=== PATIENT | female | born 1965 | race Caucasian/White ===

== ENCOUNTER 2017-03-26 13:46 | Emergency (ER) | payer MEDICARE ==
[~2017-03-26 13:46] MED LIST: GLUCTAB PO; METF-324 PO; PLAV75TA PO; ROSU40 PO; WELLTAB39 PO
[2017-03-26 13:48] VITALS: BP 119/75; PULSE 104; RESP 14; TEMP 98.4; O2SAT 99
[2017-03-26] MEDS ORDERED: IBUPROFEN 800 MG TAB PO ONE (14:45)
--- NOTE | 2017-03-26 14:49 | PD ---
HPI Chief Complaint: Musculoskeletal Complaint Time Seen by Provider: 14:35 Travel History International Travel<30 days: No Contact w/Intl Traveler<30days: No Traveled to known affect area: No History of Present Illness HPI 52-year-old female presents to the emergency department complaint of bilateral wrist pain, left knee pain, left lateral neck pain after tripping over a handicapped ramp inclination today. She fell forward to her knees and caught herself with both hands. She denies hitting her head or loss of consciousness. Has been ambulatory since after the fall. Came in private vehicle for evaluation. Denies hitting her head or loss of consciousness. Denies back pain. Denies anticoagulant therapy. Denies chest pain, shortness of breath, abdominal pain, vomiting. Denies paresthesias, loss of sensation, decreased range of motion, decreased strength to all extremities. Has not taken any medications or tried any treatments to alleviate her symptoms. Rates pain 7/ 10. Describes it as aching sensation. No known relieving factors. Neck, wrists, knee are aggravated with movement. Allergies to tramadol and be venom. Denies significant past medical history. No primary care provider in this area. Has no other medical complaints. No other modifying factors or associated signs and symptoms. PFSH Past Medical History ?: Not Social History Tobacco Use: No Allergies-Medications (Allergen,Severity, Reaction): Coded Allergies: bee venom protein (honey bee) (Unverified Allergy, Severe, SWELLLING, 10/31) tramadol (Verified Allergy, Severe, Vertigo, 03/26/17) Reported Meds & Prescriptions Reported Meds & Active Scripts Active Ibuprofen 800 Mg Tab 800 Mg PO Q6HR PRN Robaxin (Methocarbamol) 500 Mg Tab 500 Mg PO QID PRN Reported Metformin (Metformin HCl) 500 Mg Tab 500 Mg PO BIDPC Review of Systems Except as stated in HPI: all other systems reviewed are Neg Physical Exam Narrative GENERAL: Well-nourished, well-developed female patient, in no acute distress SKIN: Warm and dry. Left knee with superficial abrasion noted; without drainage. HEAD: Atraumatic. Normocephalic. EYES: Pupils equal and round No injection or drainage. ENT: Mucosa pink and moist. Airway patent. EARS: Bilateral pinnae and external canals appear within normal limits. Bilateral tympanic membranes without erythema, dullness, hemotympanum or perforation. No otorrhea. No sanchez signs. NECK: Moving freely. Trachea midline. No lymphadenopathy. Active rotation of the neck greater than 45 left and right. No midline point tenderness on palpation of the cervical spine. Reproducible tenderness to bilateral musculature of the neck. No obvious deformities. CHEST: No retractions or use of accessory muscles. CARDIOVASCULAR: Regular rate and rhythm. No murmur appreciated. RESPIRATORY: No accessory muscle use. Clear to auscultation. Breath sounds equal bilaterally. GASTROINTESTINAL: Abdomen soft, non-tender, nondistended. Hepatic and splenic margins not palpable. Bowel sounds are active 4 quadrants. MUSCULOSKELETAL: Bilateral wrists with tenderness on palpation; right wrist with ecchymosis noted to the palmar aspect; with full range of motion; without erythema, edema; 2+ radial pulses and sensory intact. Left knee with tenderness on palpation to the patellar aspect; with full range of motion and flexion to 90; joint stable with negative drawer test. Patient ambulatory on the affected extremity. No obvious deformities. No clubbing. No cyanosis. No edema. BACK: No midline Point tenderness on palpation of the lumbar or thoracic spine. No obvious deformities. Patient sitting up in bed at 90. NEUROLOGICAL: Awake and alert. Oriented 3. No obvious cranial nerve deficits. Motor grossly within normal limits. Normal speech. No midline drift. No ataxia. Moves all extremities. 5/5 strength to all extremities. Sensory intact. PSYCHIATRIC: Appropriate mood and affect; insight and judgment normal. Data Data Last Documented VS Vital Signs Date Time Temp Pulse Resp B/P (MAP) Pulse Ox O2 Delivery O2 Flow Rate FiO2 03/26/17 16:12 20 03/26/17 13:48 98.4 104 119/75 (90) 99 Orders Orders Wrist, Complete ([id number]) (03/26/17 14:45) Ibuprofen (Motrin) (03/26/17 14:45) Wrist, Complete ([id number]) (03/26/17 14:45) Knee, Complete (4vws) (03/26/17 14:48) Ed Discharge Order (03/26/17 16:37) [facility] Medical Decision Making Medical Screen Exam Complete: Yes Emergency Medical Condition: Yes Medical Record Reviewed: Yes Differential Diagnosis Fall, Muscle strain of neck, wrist sprain, knee contusion Narrative Course 52-year-old female with muscle strain of neck, bilateral wrist injury, left knee injury after mechanical fall. Ibuprofen ordered. Bilateral wrist x-ray and left knee x-ray ordered. 1641: I lateral wrist x-ray and left knee x-ray concludes: Knee X-Ray [id number]/26/[id number] Signed Impressions: Service Date/Time: Sunday, March 26, 2017 15:33 - CONCLUSION: 1. No acute findings. Mild osteoarthritis of the left knee. Dallin Maldonado MD Wrist X-Ray [id number]/26/[id number] Signed Impressions: Service Date/Time: Sunday, March 26, 2017 15:40 - CONCLUSION: 1. No acute findings. Mild osteoarthritis of the right wrist. Dallin Maldonado MD Wrist X-Ray [id number] Signed Impressions: Service Date/Time: Sunday, March 26, 2017 15:37 - CONCLUSION: 1. No acute findings. Mild osteoarthritis of the left wrist. Dallin Maldonaod MD I discussed the findings with the patient. Offered the patient wrist splints and crutches for support. Patient declined all. Ibuprofen and Robaxin prescribed for home. Instructed patient to follow up with primary care provider. Patient verbalizes understanding and agreement with treatment plan. Patient is medically cleared and stable for discharge. Discussed reasons to return to the emergency department. Patient agrees with treatment plan. The patients vital signs are stable and the patient is stable for outpatient follow- up and treatment. Patient discharged home, stable and in no acute distress. Diagnosis Primary Impression: Fall Qualified Codes: W19.XXXA - Unspecified fall, initial encounter Additional Impressions: Strain of cervical portion of both trapezius muscles Left wrist injury Qualified Codes: S69.92XA - Unspecified injury of left wrist, hand and finger( s), initial encounter Right wrist injury Qualified Codes: S69.91XA - Unspecified injury of right wrist, hand and finger (s), initial encounter Contusion of left knee Qualified Codes: S80.02XA - Contusion of left knee, initial encounter Referrals: [facility] Primary Care Physician Patient Instructions: Contusion in Adults (ED), Fall Prevention (ED), General Instructions, Muscle Strain (ED), Wrist Sprain (ED) Additional Instructions: Tylenol or ibuprofen as directed and as needed to reduce pain Rest, ice, compress, and elevate extremity to decrease pain and inflammation Wrist Splint for support Knee brace as needed for support Crutches as needed for support Avoid aggravating activity; increase activity as tolerated Follow-up with primary care provider Return to the emergency department immediately with worsening symptoms Med/Other Pt SpecificInfo: Prescription(s) given Scripts Ibuprofen (Ibuprofen) 800 Mg Tab 800 MG PO Q6HR Y for PAIN, #30 TAB 0 Refills Prov: Sveta Monroe 03/26/17 Methocarbamol (Robaxin) 500 Mg Tab 500 MG PO QID Y for MUSCLE SPASM, #30 TAB 0 Refills Prov: Sveta Monroe 03/26/17 Disposition: 01 DISCHARGE HOME Condition: Stable Sveta Monroe Mar 26, 2017 14:49
[2017-03-26] MEDS ORDERED: METF500T PO (15:02)
--- NOTE | 2017-03-26 15:57 | RADRPT ---
EXAM DATE/TIME: 03/26/2017 15:33 [facility] COMPARISON: No previous studies available for comparison. INDICATIONS : Left knee pain, fell today MEDICAL HISTORY : None. SURGICAL HISTORY : None. ENCOUNTER: Initial ACUITY: 1 day PAIN SCORE: 7/10 LOCATION: Left knee FINDINGS: Four view examination of the left knee demonstrates no evidence of fracture or dislocation. Bony min eralization is normal. The articular surfaces are intact. The suprapatellar soft tissues have a nor mal configuration. CONCLUSION: 1. No acute findings. Mild osteoarthritis of the left knee. Dallin Maldonado MD on March 26, 2017 at 15:54 Board Certified Radiologist. This report was verified electronically.
--- NOTE | 2017-03-26 15:57 | RADRPT ---
EXAM DATE/TIME: 03/26/2017 15:37 [facility] COMPARISON: No previous studies available for comparison. INDICATIONS : Left wrist pain, fell today. MEDICAL HISTORY : None. SURGICAL HISTORY : None. ENCOUNTER: Initial ACUITY: 1 day PAIN SCORE: 7/10 LOCATION: Left wrist FINDINGS: Three view examination of the left wrist demonstrates no soft tissue swelling, dislocation, or fractu re. The carpal bones are in normal alignment. The joint spaces are maintained. Bony mineralization is normal. CONCLUSION: 1. No acute findings. Mild osteoarthritis of the left wrist. Dallin Maldonado MD on March 26, 2017 at 15:54 Board Certified Radiologist. This report was verified electronically.
--- NOTE | 2017-03-26 15:58 | RADRPT ---
EXAM DATE/TIME: 03/26/2017 15:40 [facility] COMPARISON: No previous studies available for comparison. INDICATIONS : Right wrist pain, fell today. MEDICAL HISTORY : None. SURGICAL HISTORY : None. ENCOUNTER: Initial ACUITY: 1 day PAIN SCORE: 7/10 LOCATION: Right wrist FINDINGS: Three view examination of the right wrist demonstrates no soft tissue swelling, dislocation, or fract ure. The carpal bones are in normal alignment. The joint spaces are maintained. Bony mineralizatio n is normal. CONCLUSION: 1. No acute findings. Mild osteoarthritis of the right wrist. Dallin Maldonado MD on March 26, 2017 at 15:55 Board Certified Radiologist. This report was verified electronically.
[2017-03-26] MEDS ORDERED: IBUP1TAB7 PO (16:01)
[2017-03-26] MEDS ORDERED: ROBA500T PO (16:01)
[2017-03-26 16:12] VITALS: RESP 20
== END 2017-03-26 16:56 | disposition home or self-care (01) ==
LOC: NEPK 13:46
DX: S16.1XXA Strain of muscle, fascia and tendon at neck level, initial encounter (principal); S69.92XA Unspecified injury of left wrist, hand and finger(s), initial encounter; S69.91XA Unspecified injury of right wrist, hand and finger(s), initial encounter; S80.02XA Contusion of left knee, initial encounter; W01.0XXA Fall on same level from slipping, tripping and stumbling without subsequent striking against object, initial encounter
CPT/HCPCS: 73110; 73564; 99284

== ENCOUNTER 2017-05-20 12:54 | Inpatient (IN) | payer MEDICARE ==
[2017-05-20] VITALS (7 sets, daily range): BP systolic 108–183; BP diastolic 74–100; PULSE 74–89; RESP 16–18; TEMP 98–98.6; O2SAT 98–100
[~2017-05-20] VITALS: Ht 165.1 cm; Wt 85.0 kg
[~2017-05-20 12:54] MED LIST changes: -GLUCTAB PO; +IBUP1TAB7 PO; -METF-324 PO; +METF500T PO; -PLAV75TA PO; +ROBA500T PO; -ROSU40 PO; -WELLTAB39 PO
[2017-05-20] MEDS ORDERED: SODIUM CHLORIDE 0.9% FLUSH 10 ML FLUSH IVF PRN (13:15)
--- NOTE | 2017-05-20 13:50 | PD ---
HPI Chief Complaint: Neuro Symptoms/ Deficits Time Seen by Provider: 13:14 Travel History International Travel<30 days: No Contact w/Intl Traveler<30days: No Traveled to known affect area: No History of Present Illness HPI The patient is a 52-year-old female who arrives to the ER with a complaint of numbness tingling weakness involving both upper and both lower extremities and weakness in the left face. The symptoms have been coming and going somewhat intermittently over the past 6 hours or so. At time of ER evaluation she has no symptoms however reports she had a stroke 6 years ago and is worried the same is happening now. The stroke affected the right side. She denies drugs alcohol. She reports compliance with Plavix. PFSH Past Medical History Anxiety: Yes High Cholesterol: Yes Cerebrovascular Accident: Yes Diabetes: Yes Patient Takes Glucophage: Yes Diminished Hearing: No Immunizations Current: Yes ?: Not Menopausal: Yes Dilation and Curettage (D&C): Yes Tubal Ligation: Yes Past Surgical History Section: Yes Other Surgery: Yes (spinal fusions) Social History Alcohol Use: No Tobacco Use: No Substance Use: No Allergies-Medications (Allergen,Severity, Reaction): Coded Allergies: bee venom protein (honey bee) (Verified Allergy, Severe, SWELLLING, 05/20/17 ) tramadol (Verified Allergy, Severe, Vertigo, 05/20/17) Reported Meds & Prescriptions Reported Meds & Active Scripts Active Reported [place] (Hydrocodone-Acetaminophen) 5 Mg-325 Mg Tab 1 Tab PO Q4H PRN Crestor (Rosuvastatin Calcium) 40 Mg Tab 75 Mg PO DAILY Glyburide 5 Mg Tab 10 Mg PO DAILY Take with meals at the same time each day Plavix (Clopidogrel Bisulfate) 75 Mg Tab 75 Mg PO DAILY Metformin (Metformin HCl) 500 Mg Tab 500 Mg PO BIDPC Review of Systems Except as stated in HPI: all other systems reviewed are Neg General / Constitutional: No: Fever Neurologic: Positive: Focal Abnormalities, Paresthesia Physical Exam Narrative GENERAL: 52-year-old female pleasant well-nourished well-developed Vital Signs Date Time Temp Pulse Resp B/P (MAP) Pulse Ox O2 Delivery O2 Flow Rate FiO2 05/20/17 13:45 100 Room Air 05/20/17 13:40 Room Air 05/20/17 12:57 98.6 88 17 154/100 (118) 99 SKIN: Warm and dry. HEAD: Atraumatic. Normocephalic. EYES: Pupils equal and round. No scleral icterus. No injection or drainage. ENT: No nasal bleeding or discharge. Mucous membranes pink and moist. NECK: Trachea midline. No JVD. CARDIOVASCULAR: Regular rate and rhythm. RESPIRATORY: No accessory muscle use. Clear to auscultation. Breath sounds equal bilaterally. GASTROINTESTINAL: Abdomen soft, non-tender, nondistended. Hepatic and splenic margins not palpable. MUSCULOSKELETAL: Extremities without clubbing, cyanosis, or edema. No obvious deformities. NEUROLOGICAL: Speech memory mentation normal. The cranial nerves III through XII are normal. There is trace weakness in the right upper right lower extremity compared to the left. The patient has a known history of weakness on that side. Cerebellar function is normal. PSYCHIATRIC: Appropriate mood and affect; insight and judgment normal. Data Data Last Documented VS Vital Signs Date Time Temp Pulse Resp B/P (MAP) Pulse Ox O2 Delivery O2 Flow Rate FiO2 05/20/17 15:00 78 16 179/85 (116) 98 Nasal Cannula 2.00 05/20/17 12:57 98.6 Vital signs reviewed Orders Orders Electrocardiogram (05/20/17 13:14) Prothrombin Time / Inr (Pt) (05/20/17 13:14) Act Partial Throm Time (Ptt) (05/20/17 13:14) Complete Blood Count With Diff (05/20/17 13:14) Basic Metabolic Panel (Bmp) (05/20/17 13:14) Drug Screen, Random Urine (05/20/17 13:14) Urinalysis - C+S If Indicated (05/20/17 13:14) Ct Brain W/O Iv Contrast(Rout) (05/20/17 13:14) Ecg Monitoring (05/20/17 13:14) Iv Access Insert/Monitor (05/20/17 13:14) Oximetry (05/20/17 13:14) Sodium Chloride 0.9% Flush (Ns Flush) (05/20/17 13:15) Urine Culture (05/20/17 13:20) Admit Order (Ed Use Only) (05/20/17 ) Sign Out Clerk / Telemetry DALIA.Q8H (05/20/17 15:56) Vital Signs (Adult) Q4H (05/20/17 15:56) Diet Heart Healthy (05/20/17 Dinner) Activity Bed Rest (05/20/17 15:56) Labs Laboratory Tests Test 05/20/17 13:20 05/20/17 13:50 Urine Color LIGHT-YELLOW Urine Turbidity CLEAR Urine pH 5.0 Urine Specific [place] 1.032 Urine Protein NEG mg/dL Urine Glucose (UA) 1000 mg/dL Urine Ketones NEG mg/dL Urine Occult Blood NEG Urine Nitrite POS Urine Bilirubin NEG Urine Urobilinogen LESS THAN 2.0 MG/DL Urine Leukocyte Esterase NEG Urine RBC 1 /hpf Urine WBC 2 /hpf Urine Squamous Epithelial Cells 4 /hpf Urine Bacteria MOD /hpf Urine Mucus FEW /lpf Microscopic Urinalysis Comment CATH-CULTURE IND Urine Opiates Screen NEG Urine Barbiturates Screen NEG Urine Amphetamines Screen NEG Urine Benzodiazepines Screen NEG Urine Cocaine Screen NEG Urine Cannabinoids Screen NEG White Blood Count 11.1 TH/MM3 Red Blood Count 4.65 MIL/MM3 Hemoglobin 12.7 GM/DL Hematocrit 38.2 % Mean Corpuscular Volume 82.2 FL Mean Corpuscular Hemoglobin 27.4 PG Mean Corpuscular Hemoglobin Concent 33.4 % Red Cell Distribution Width 12.9 % Platelet Count 224 TH/MM3 Mean Platelet Volume 9.2 FL Neutrophils (%) (Auto) 58.7 % Lymphocytes (%) (Auto) 33.8 % Monocytes (%) (Auto) 6.2 % Eosinophils (%) (Auto) 0.9 % Basophils (%) (Auto) 0.4 % Neutrophils # (Auto) 6.5 TH/MM3 Lymphocytes # (Auto) 3.7 TH/MM3 Monocytes # (Auto) 0.7 TH/MM3 Eosinophils # (Auto) 0.1 TH/MM3 Basophils # (Auto) 0.0 TH/MM3 CBC Comment DIFF FINAL Differential Comment Prothrombin Time 10.0 SEC Prothromb Time International Ratio 1.0 RATIO Activated Partial Thromboplast Time 23.8 SEC Blood Urea Nitrogen 26 MG/DL Creatinine 1.01 MG/DL Random Glucose 379 MG/DL Calcium Level 8.8 MG/DL Sodium Level 135 MEQ/L Potassium Level 3.9 MEQ/L Chloride Level 100 MEQ/L Carbon Dioxide Level 29.1 MEQ/L Anion Gap 6 MEQ/L Estimat Glomerular Filtration Rate 57 ML/MIN MDM Medical Decision Making Medical Screen Exam Complete: Yes Emergency Medical Condition: Yes Medical Record Reviewed: Yes Differential Diagnosis TIA, CVA, electron imbalance, anxiety, paresthesia Narrative Course CBC & BMP Diagram 05/20/17 13:50 Calcium Level 8.8 Urinalysis shows a UTI Urine tox is negative Anion gap is [address] shows no acute abnormality The EKG shows sinus rhythm at a rate of 82 Presentation is concerning for TIA. The patient will be admitted for diagnostic evaluation. d/w Dr [place] Diagnosis Primary Impression: TIA (transient ischemic attack) Qualified Codes: G45.9 - Transient cerebral ischemic attack, unspecified Additional Impression: UTI (urinary tract infection) Qualified Codes: N39.0 - Urinary tract infection, site not specified Admitting Information Admitting Physician Requests: Observation Duncan Brown MD May 20, 2017 13:50
[2017-05-20 14:10] LABS: AUTOMATED NEUTROPHIL # 6.5 TH/MM3 (1.8-7.7); BASOPHIL % 0.4 % (0.0-2.0); EOSINOPHIL # 0.1 TH/MM3 (0-0.4); EOSINOPHIL % 0.9 % (0.0-4.0); HEMATOCRIT 38.2 % (35.0-46.0); HEMOGLOBIN 12.7 GM/DL (11.6-15.3); LYMPH % 33.8 % (9.0-44.0); LYMPHOCYTE # 3.7 TH/MM3 (1.0-4.8); MEAN CELL VOLUME 82.2 FL (80.0-100.0); MEAN CORPUSCULAR HEMOGLOBIN 27.4 PG (27.0-34.0); MEAN CORPUSCULAR HGB CONC 33.4 % (32.0-36.0); MEAN PLATELET VOLUME 9.2 FL (7.0-11.0); MONO % 6.2 % (0.0-8.0); MONOCYTE # 0.7 TH/MM3 (0-0.9); NEUT % 58.7 % (16.0-70.0); PLATELET COUNT 224 TH/MM3 (150-450); RED BLOOD COUNT 4.65 MIL/MM3 (4.00-5.30); RED CELL DISTRIBUTION WIDTH 12.9 % (11.6-17.2); WHITE BLOOD COUNT 11.1 TH/MM3 (4.0-11.0)
[2017-05-20 14:12] LABS: BACTERIA, URINE MOD /hpf; BILIRUBIN, URINE NEG (NEG); BLOOD, URINE NEG (NEG); GLUCOSE,URINE 1000 mg/dL (NEG); KETONE, URINE NEG (NEG); MUCUS URINE FEW /lpf (OCC); NITRITE,URINE POS (NEG); SQUAMOUS EPITHELIAL CELL URINE 4 /hpf (0-5); URINE COLOR LIGHT-YELLOW (YELLW/STRAW); URINE LEUKOCYTE ESTERASE NEG (NEG)
[2017-05-20 14:29] LABS: CALCIUM 8.8 MG/DL (8.5-10.1); CREATININE 1.01 MG/DL (0.50-1.00)
[2017-05-20 14:30] LABS: BICARBONATE 29.1 MEQ/L (21.0-32.0)
[2017-05-20] MEDS ORDERED: PLAV75TA29 PO (14:37)
[2017-05-20] MEDS ORDERED: GLYB5TAB3 PO (14:37)
[2017-05-20] MEDS ORDERED: ROSU40 PO (14:37)
[2017-05-20] MEDS ORDERED: NORC5TAB PO (14:37)
--- NOTE | 2017-05-20 16:47 | RADRPT ---
EXAM DATE/TIME: 05/20/2017 16:36 [facility] COMPARISON: No previous studies available for comparison. INDICATIONS : Left facial numbness, loss of balance, bilateral arm numbness, TIA. RADIATION DOSE: 56.35 CTDIvol (mGy) MEDICAL HISTORY : CVA SURGICAL HISTORY : None. ENCOUNTER: Initial ACUITY: 1 day PAIN SCALE: 0/10 LOCATION: cranial TECHNIQUE: Multiple contiguous axial images were obtained of the head. Using automated exposure control and adj ustment of the mA and/or kV according to patient size, radiation dose was kept as low as reasonably a chievable to obtain optimal diagnostic quality images. DICOM format image data is available electro nically for review and comparison. FINDINGS: CEREBRUM: The ventricles are normal for age. No evidence of midline shift, mass lesion, hemorrhage or acute in farction. No extra-axial fluid collections are seen. POSTERIOR FOSSA: The cerebellum and brainstem are intact. The 4th ventricle is midline. The cerebellopontine angle i s unremarkable. EXTRACRANIAL: The visualized portion of the orbits is intact. SKULL: The calvaria is intact. No evidence of skull fracture. CONCLUSION: Normal examination. Jorge Luis Guadarrama MD on May 20, 2017 at 16:44 Board Certified Radiologist. This report was verified electronically.
[2017-05-20] MEDS ORDERED: SODIUM CHLORIDE 0.9% FLUSH 10 ML FLUSH IV FLUSH PRN (18:15)
[2017-05-20] MEDS ORDERED: GLUCAGON 1 MG/ML VIAL OTHER PRN (18:15)
[2017-05-20] MEDS ORDERED: DEXTROSE 50% IN WATER 50 ML VIAL(D50) IV PUSH PRN (18:15)
--- NOTE | 2017-05-20 19:08 | RADRPT ---
EXAM DATE/TIME: 05/20/2017 18:43 [facility] COMPARISON: No previous studies available for comparison. INDICATIONS : Left facial numbness, loss of balance, bilateral arm numbness, TIA. MEDICAL HISTORY : CVA SURGICAL HISTORY : none ENCOUNTER: Initial ACUITY: One day PAIN SCORE: Zero LOCATION: Cranial TECHNIQUE: Multiplanar, multisequence MRI of the brain was performed without contrast. FINDINGS: CEREBRUM: The ventricles are normal for age. No evidence of midline shift, mass lesion, hemorrhage or acute in farction. No extraaxial fluid collections are seen. The pituitary gland and suprasellar cistern are normal in configuration. WHITE MATTER: Mild signal abnormalities are seen in the white matter. POSTERIOR FOSSA: The cerebellum and brainstem are intact. The 4th ventricle is midline. The cerebellopontine angle is unremarkable. The cerebellar tonsils are normal in position. DIFFUSION IMAGING: No focal areas of restricted diffusion are seen. No evidence of acute infarction. EXTRACRANIAL: The visualized portions of the orbits and paranasal sinuses are unremarkable. CONCLUSION: 1. No acute findings. No recent infarct no mass effect or shift. No hydrocephalus. Minimal white sergio er ischemic changes. Dallin Maldonado MD on May 20, 2017 at 19:02 Board Certified Radiologist. This report was verified electronically.
--- NOTE | 2017-05-20 19:25 | RADRPT ---
EXAM DATE/TIME: 05/20/2017 18:43 [facility] COMPARISON: No previous studies available for comparison. INDICATIONS : Left sided weakness. MEDICAL HISTORY : Diabetes mellitus type 2. Hypertension. Hypercholesterolemia. CVA. SURGICAL HISTORY : Tubal ligation. Fusion, lumbar. section. ENCOUNTER: Initial ACUITY: 1 day PAIN SCORE: 0/10 LOCATION: cranial Please note a normal MRA of the brain does not entirely exclude the possibility of a small aneurysm, nor the possibility of distal intracranial vessel disease. TECHNIQUE: 3D time of flight MRA was performed. Source images, multiplanar STS MIP, and 3D volume MIP reconstru ctions were reviewed. FINDINGS: There is excellent visualization of the major intracranial arteries out to the second-order branch ve ssels. There is no evidence for aneurysm, vessel truncation or stenosis, and no evidence for vascula r malformation. CONCLUSION: 1. Examination within normal limits for age. Dallin Maldonado MD on May 20, 2017 at 19:20 Board Certified Radiologist. This report was verified electronically.
[2017-05-20] MEDS: cefTRIAXone INJ 1,000 MG in SODIUM CHLORIDE 0.9% INJ 100 ML IV SCH (19:49)
[2017-05-20] MEDS: SODIUM CHLORIDE 0.9% FLUSH 10 ML FLUSH IV FLUSH SCH (19:49)
[2017-05-20] MEDS: ATORVASTATIN 10 MG TAB PO SCH (19:49)
--- NOTE | 2017-05-20 19:52 | HHI.HP ---
HPI Service [facility] Primary Care Physician No Primary Care Physician Admission Diagnosis TIA Diagnoses: Chief Complaint: Left upper extremity numbness, facial numbness Travel History International Travel<30 Days: No Contact w/Intl Traveler <30 Da: No Traveled to Known Affected Are: No History of Present Illness 52 -year-old female with a history of diabetes, hyperlipidemia, CVA and anxiety presented to the ED with complaints of numbness and tingling to bilateral upper extremities. Patient states today about 8 AM this morning she began to have upper extremity numbness and tingling mostly in her left upper arm and left leg and the left side of her face. She states throughout the day this feeling would come and go when she also had a hard time finding words when speaking. 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 She denies any associated chest pain, shortness of breath, fever or chills. She has just recently moved to [place] in January and has not found a primary care physician and as of Sunday she has been out of her diabetic medications. She states she is compliant with all her other medications for cholesterol and her Plavix. Upon examination she was experiencing intermittent left-sided cheek numbness. No facial droop noted. Review of Systems Except as stated in HPI: all other systems reviewed are Neg Past Family Social History Past Medical History Diabetes Hyperlipidemia Anxiety Past Surgical History Spinal fusion Tubal ligation Reported Medications Reported Meds & Active Scripts Active Reported [place] (Hydrocodone-Acetaminophen) 5 Mg-325 Mg Tab 1 Tab PO Q4H PRN Crestor (Rosuvastatin Calcium) 40 Mg Tab 75 Mg PO DAILY Glyburide 5 Mg Tab 10 Mg PO DAILY Take with meals at the same time each day Plavix (Clopidogrel Bisulfate) 75 Mg Tab 75 Mg PO DAILY Metformin (Metformin HCl) 500 Mg Tab 500 Mg PO BIDPC Allergies: Coded Allergies: bee venom protein (honey bee) (Verified Allergy, Severe, SWELLLING, 05/20/17 ) tramadol (Verified Allergy, Severe, Vertigo, 05/20/17) Active Ordered Medications Current Medications Medications (Trade) Dose Ordered Sig/Trish Route Start Time Stop Time Status Last Admin (NS Flush) 2 ml UNSCH PRN IVF 05/20/17 13:15 (NS Flush) 2 ml BID IV FLUSH 05/20/17 21:00 (NS Flush) 2 ml UNSCH PRN IV FLUSH 05/20/17 18:15 (Aspirin Chew) 81 mg DAILY PO 05/21/17 09:00 (Lipitor) 10 mg HS PO 05/20/17 21:00 (NovoLOG SUPPLEMENTAL SCALE) 1 ACHS SQ 05/20/17 21:00 (D50w (Vial) Inj) 50 ml UNSCH PRN IV PUSH 05/20/17 18:15 (Glucagon Inj) 1 mg UNSCH PRN OTHER 05/20/17 18:15 Ceftriaxone Sodium 1000 mg/ Sodium Chloride 100 ml @ 200 mls/hr Q24H IV 05/20/17 20:00 Family History Mom: CVA Social History Tobacco use: Alcohol use: Illicit drug use: Physical Exam Vital Signs Vital Signs Date Time Temp Pulse Resp B/P (MAP) Pulse Ox O2 Delivery O2 Flow Rate FiO2 05/20/17 16:50 98.1 74 18 183/94 (123) 100 05/20/17 16:41 05/20/17 15:00 78 16 179/85 (116) 98 Nasal Cannula 2.00 05/20/17 14:00 84 16 154/91 (112) 100 Room Air 05/20/17 13:45 100 Room Air 05/20/17 13:40 Room Air 05/20/17 12:57 98.6 88 17 154/100 (118) 99 Physical Exam GENERAL: This is a well-nourished, well-developed patient, in no apparent distress. SKIN: No rashes, ecchymoses or lesions. Cool and dry. HEAD: Atraumatic. Normocephalic. EYES: Pupils equal round and reactive. No peripheral vision loss ENT: Nose without bleeding, purulent drainage or septal hematoma. Airway patent. NECK: Trachea midline. No JVD or lymphadenopathy. Supple, nontender, no meningeal signs. CARDIOVASCULAR: Regular rate and rhythm without murmurs, gallops, or rubs. RESPIRATORY: Clear to auscultation. Breath sounds equal bilaterally. No wheezes , rales, or rhonchi. GASTROINTESTINAL: Abdomen soft, non-tender, nondistended. MUSCULOSKELETAL: Right side weaker than left, chronic, tenderness. NEUROLOGICAL: Awake and alert. Cranial nerves II through XII intact. Motor and sensory grossly within normal limits. 4 out of 5 muscle strength in right upper extremity, chronic Normal speech. Laboratory Laboratory Tests Test 05/20/17 13:20 05/20/17 13:50 Urine Color LIGHT-YELLOW Urine Turbidity CLEAR Urine pH 5.0 Urine Specific [place] 1.032 Urine Protein NEG Urine Glucose (UA) 1000 Urine Ketones NEG Urine Occult Blood NEG Urine Nitrite POS Urine Bilirubin NEG Urine Urobilinogen LESS THAN 2.0 Urine Leukocyte Esterase NEG Urine RBC 1 Urine WBC 2 Urine Squamous Epithelial Cells 4 Urine Bacteria MOD Urine Mucus FEW Microscopic Urinalysis Comment CATH-CULTURE IND Urine Opiates Screen NEG Urine Barbiturates Screen NEG Urine Amphetamines Screen NEG Urine Benzodiazepines Screen NEG Urine Cocaine Screen NEG Urine Cannabinoids Screen NEG White Blood Count 11.1 Red Blood Count 4.65 Hemoglobin 12.7 Hematocrit 38.2 Mean Corpuscular Volume 82.2 Mean Corpuscular Hemoglobin 27.4 Mean Corpuscular Hemoglobin Concent 33.4 Red Cell Distribution Width 12.9 Platelet Count 224 Mean Platelet Volume 9.2 Neutrophils (%) (Auto) 58.7 Lymphocytes (%) (Auto) 33.8 Monocytes (%) (Auto) 6.2 Eosinophils (%) (Auto) 0.9 Basophils (%) (Auto) 0.4 Neutrophils # (Auto) 6.5 Lymphocytes # (Auto) 3.7 Monocytes # (Auto) 0.7 Eosinophils # (Auto) 0.1 Basophils # (Auto) 0.0 CBC Comment DIFF FINAL Differential Comment Prothrombin Time 10.0 Prothromb Time International Ratio 1.0 Activated Partial Thromboplast Time 23.8 Blood Urea Nitrogen 26 Creatinine 1.01 Random Glucose 379 Calcium Level 8.8 Sodium Level 135 Potassium Level 3.9 Chloride Level 100 Carbon Dioxide Level 29.1 Anion Gap 6 Estimat Glomerular Filtration Rate 57 Date/Time Source Procedure Growth Status 05/20/17 13:20 Urine Catheterized Urine Urine Culture Pending Received Result Diagram: 05/20/17 1350 05/20/17 1350 Imaging Last Impressions Head CT 05/20/17 1314 Signed Impressions: Service Date/Time: Saturday, May 20, 2017 16:36 - CONCLUSION: Normal examination. Jorge Luis Guadarrama MD Head Magnetic Resonance Angiography 05/20/17 Signed Impressions: Service Date/Time: Saturday, May 20, 2017 18:43 - CONCLUSION: 1. Examination within normal limits for age. Dallin Maldonado MD Brain MRI 05/20/17 Signed Impressions: Service Date/Time: Saturday, May 20, 2017 18:43 - CONCLUSION: 1. No acute findings. No recent infarct no mass effect or shift. No hydrocephalus. Minimal white matter ischemic changes. Dallin Maldonado MD Caprini VTE Risk Assessment Caprini VTE Risk Assessment: Mod/High Risk (score >= 2) Caprini Risk Assessment Model Point Value = 1 Point Value = 2 Point Value = 3 Point Value = 5 Age 41-60 Minor surgery BMI > 25 kg/m2 Swollen legs Varicose veins or History of unexplained or recurrent spontaneous Oral contraceptives or hormone replacement Sepsis (< 1 month) Serious lung disease, including pneumonia (< 1 month) Abnormal pulmonary function Acute myocardial infarction Congestive heart failure (< 1 month) History of inflammatory bowel disease Medical patient at bed rest Age 61-74 Arthroscopic surgery Major open surgery (> 45 min) Laparoscopic surgery (> 45 min) Malignancy Confined to bed (> 72 hours) Immobilizing plaster cast Central venous access Age >= 75 History of VTE Family history of VTE Factor V Leiden Prothrombin [id number] Lupus anticoagulant Anticardiolipin antibodies Elevated serum homocysteine Heparin-induced thrombocytopenia Other congenital or acquired thrombophilia Stroke (< 1 month) Elective arthroplasty Hip, pelvis, or leg fracture Acute spinal cord injury (< 1 month) Prophylaxis Regimen Total Risk Factor Score Risk Level Prophylaxis Regimen 0-1 Low Early ambulation 2 Moderate Order ONE of the following: *Sequential Compression Device (SCD) *Heparin 5000 units SQ BID 3-4 Higher Order ONE of the following medications: *Heparin 5000 units SQ TID *Enoxaparin/Lovenox 40 mg SQ daily (WT < 150 kg, CrCl > 30 mL/min) *Enoxaparin/Lovenox 30 mg SQ daily (WT < 150 kg, CrCl > 10-29 mL/min) *Enoxaparin/Lovenox 30 mg SQ BID (WT < 150 kg, CrCl > 30 mL/min) AND/OR *Sequential Compression Device (SCD) 5 or more Highest Order ONE of the following medications: *Heparin 5000 units SQ TID (Preferred with Epidurals) *Enoxaparin/Lovenox 40 mg SQ daily (WT < 150 kg, CrCl > 30 mL/min) *Enoxaparin/Lovenox 30 mg SQ daily (WT < 150 kg, CrCl > 10-29 mL/min) *Enoxaparin/Lovenox 30 mg SQ BID (WT < 150 kg, CrCl > 30 mL/min) AND *Sequential Compression Device (SCD) Assessment and Plan Problem List: (1) TIA (transient ischemic attack) ICD Code: G45.9 - Transient cerebral ischemic attack, unspecified Status: Acute (2) UTI (urinary tract infection) ICD Code: N39.0 - Urinary tract infection, site not specified Status: Acute Assessment and Plan 52 -year-old female with a history of diabetes, hyperlipidemia, anxiety presented to the ED with complaints of numbness and tingling to bilateral upper extremities. TIA, acute CT brain reviewed and unremarkable MRI/MRA reviewed and shows no acute findings -Continue neuro checks -Consult neurology for recommendations -Lipid profile/hemoglobin A1c ordered -2-D echo ordered -PT/OT/ST -Continue Plavix, aspirin daily -2-D echo pending -Carotid ultrasound ordered Abnormal UA, questionable UTI -Continue Rocephin daily -Urine culture pending Diabetes, chronic -Accu-Cheks with sliding scale insulin -Hold home medications while in hospital Hyperlipidemia, chronic -Resumed home medications Crestor -Follow-up on lipid panel DVT prophylaxis: SCDs Discussed Condition With Patient, RN Problem Qualifiers (1) TIA (transient ischemic attack): Qualified Codes: G45.9 - Transient cerebral ischemic attack, unspecified (2) UTI (urinary tract infection): Qualified Codes: N39.0 - Urinary tract infection, site not specified Angeles Loera May 20, 2017 19:52
[2017-05-20] MEDS: INSULIN ASPART SUPPLEMENTAL SCALE SQ SCH (20:53)
[2017-05-21] VITALS (8 sets, daily range): BP systolic 101–162; BP diastolic 58–84; PULSE 77–94; RESP 17–18; TEMP 97.8–98.4; O2SAT 97–100
--- NOTE | 2017-05-21 08:06 | HHI.PR ---
Subjective Remarks in no acute distress. still with some tingling of the upper extremities. no focal weakness. Objective Vitals Vital Signs Date Time Temp Pulse Resp B/P (MAP) Pulse Ox O2 Delivery O2 Flow Rate FiO2 05/21/17 03:37 94 18 104/59 (74) 100 05/21/17 03:30 97.9 77 18 114/61 (78) 97 05/21/17 00:24 98.0 78 18 118/58 (78) 98 05/20/17 22:55 89 05/20/17 20:16 98.0 79 18 108/74 (85) 100 05/20/17 16:50 98.1 74 18 183/94 (123) 100 05/20/17 16:41 05/20/17 15:00 78 16 179/85 (116) 98 Nasal Cannula 2.00 05/20/17 14:00 84 16 154/91 (112) 100 Room Air 05/20/17 13:45 100 Room Air 05/20/17 13:40 Room Air 05/20/17 12:57 98.6 88 17 154/100 (118) 99 I/O 05/20/17 05/20/17 05/20/17 05/21/17 05/21/17 05/21/17 07:00 15:00 23:00 07:00 15:00 23:00 Intake Total 100 ml Balance 100 ml Intake IV Total 100 ml # Voids 2 Result Diagram: 05/20/17 1350 05/20/17 1350 Imaging Last Impressions Head CT 05/20/17 1314 Signed Impressions: Service Date/Time: Saturday, May 20, 2017 16:36 - CONCLUSION: Normal examination. Jorge Luis Guadarrama MD Head Magnetic Resonance Angiography 05/20/17 0000 Signed Impressions: Service Date/Time: Saturday, May 20, 2017 18:43 - CONCLUSION: 1. Examination within normal limits for age. Dallin Maldonado MD Brain MRI 05/20/17 0000 Signed Impressions: Service Date/Time: Saturday, May 20, 2017 18:43 - CONCLUSION: 1. No acute findings. No recent infarct no mass effect or shift. No hydrocephalus. Minimal white matter ischemic changes. Dallin Maldonado MD Objective Remarks GENERAL: This is a well-nourished, well-developed patient, in no apparent distress. CARDIOVASCULAR: Regular rate and regular rhythm without murmurs, gallops, or rubs. RESPIRATORY: Clear to auscultation. Breath sounds equal bilaterally. No wheezes , rales, or rhonchi. GASTROINTESTINAL: Abdomen soft, non-tender, nondistended. Normal, active bowel sounds MUSCULOSKELETAL: Extremities without clubbing, cyanosis, or edema. NEURO: Alert & Oriented x4 to person, place, time, situation. Moves all ext x4 Medications and IVs Inpatient Medications Acetaminophen/ Hydrocodone Bitart ([place] 5-325 Mg) 1 tab Q4H PRN PO PAIN; Start 05/21/17 at 00:15 Aspirin (Aspirin Chew) 81 mg DAILY PO ; Start 05/21/17 at 09:00 Atorvastatin Calcium (Lipitor) 10 mg HS PO Last administered on 05/20/17at 19:49 ; Start 05/20/17 at 21:00 Ceftriaxone Sodium 1000 mg/ Sodium Chloride 100 ml @ 200 mls/hr Q24H IV Last administered on 05/20/17at 19:49; Start 05/20/17 at 20:00 Clopidogrel Bisulfate (Plavix) 75 mg DAILY PO ; Start 05/21/17 at 09:00 Dextrose (D50w (Vial) Inj) 50 ml UNSCH PRN IV PUSH HYPOGLYCEMIA-SEE COMMENTS; Start 05/20/17 at 18:15 Glucagon (Glucagon Inj) 1 mg UNSCH PRN OTHER HYPOGLYCEMIA-SEE COMMENTS; Start 05/20/17 at 18:15 Insulin Aspart (NovoLOG SUPPLEMENTAL SCALE) 1 ACHS SQ Last administered on at 20:53; Start 05/20/17 at 21:00 Non-Formulary Medication 75 mg DAILY PO ; Start 05/21/17 at 09:00; Status UNV Sodium Chloride (NS Flush) 2 ml UNSCH PRN IV FLUSH FLUSH AFTER USING IV ACCESS ; Start 05/20/17 at 18:15 A/P Problem List: (1) TIA (transient ischemic attack) ICD Code: G45.9 - Transient cerebral ischemic attack, unspecified Status: Acute (2) UTI (urinary tract infection) ICD Code: N39.0 - Urinary tract infection, site not specified Status: Acute Assessment and Plan TIA, acute CT brain reviewed and unremarkable MRI/MRA reviewed and shows no acute findings -Continue neuro checks -Consulted neurology for recommendations -hemoglobin A1c pending. -2-D echo ordered -PT/OT/ST -Continue Plavix, aspirin daily -2-D echo pending -Carotid ultrasound ordered Abnormal UA, questionable UTI -Continue Rocephin daily -Urine culture pending Diabetes, chronic -Accu-Cheks with sliding scale insulin -Hold home medications while in hospital Hyperlipidemia, chronic -Resumed home medications Crestor DVT prophylaxis: SCDs Discharge Planning awaiting the result of the work-up and neurology evaluation. Problem Qualifiers (1) TIA (transient ischemic attack): Qualified Codes: G45.9 - Transient cerebral ischemic attack, unspecified (2) UTI (urinary tract infection): Qualified Codes: N39.0 - Urinary tract infection, site not specified Chrissy Benitez MD May 21, 2017 08:06
[2017-05-21] MEDS: INSULIN ASPART SUPPLEMENTAL SCALE SQ SCH ×4 (08:43→21:00)
[2017-05-21] MEDS: CLOPIDOGREL 75 MG TAB PO SCH (08:43)
[2017-05-21] MEDS: SODIUM CHLORIDE 0.9% FLUSH 10 ML FLUSH IV FLUSH SCH ×2 (08:44→20:32)
[2017-05-21] MEDS ORDERED: ASPIRIN 81 MG CHEW TAB PO SCH (09:00)
[2017-05-21] MEDS ORDERED: ROSUVASTATIN PO SCH (09:00)
--- NOTE | 2017-05-21 09:44 | MB ---
cc: Joseph Caballero MD DATE OF CONSULT: HISTORY OF PRESENT ILLNESS: The patient is a 52-year-old right-handed woman with history of noninsulin dependent diabetes, hypercholesterolemia, a stroke in 2012 with right-sided weakness for which she has recovered about 90%. She has been taking Plavix since, although stopped it about last because she ran out. She has a history of peptic ulcer disease remotely. Then yesterday she noted she was numb and weak on the left side, face, arm and leg for about two hours. She came into the hospital and it reoccurred overnight about 3:00 a.m. for an hour. No chest pain or palpitations. She has had some headaches on and off but not particularly with these episodes. An MRI of the brain was done here and shows no acute infarct on my review of the films, some minimal white matter changes bilaterally, there is an old lacunar infarct right periventricular around the anterior horn of the lateral ventricles, seen best on the T2 image, but there is no acute infarct seen, no cortically based infarct. MRA of the [id number], no large artery abnormality was noted. REVIEW OF SYSTEMS: She denies any history of hypertension, MA, CABG, stent, angioplasty, AFib, coumadin, renal, hepatic or pulmonary disease, thyroid disease, lupus, cancer, seizure. SOCIAL HISTORY: She is not a smoker or drinker. She lives by herself. FAMILY HISTORY: Positive for cancer in her father. Negative for seizure or stroke. DATA: EKG shows sinus rhythm. MEDICATIONS AT HOME: She was supposed to be on Plavix but had not taken that. She takes [place] at home, Crestor, glyburide, Plavix, and metformin. ALLERGIES: BEE VENOM, PROTEIN, HONEY BEE, TRAMADOL. PHYSICAL EXAMINATION: VITAL SIGNS: Afebrile, 77, 18, 114/61. Initial blood pressure 154/100. NECK: There were no carotid bruits. HEART: Regular rate and rhythm. I do not detect a murmur. NEURO: Pupils are equal, visual wilkerson are full. Face has a little bit of droopiness on the left side on the lower face but she moves it symmetrically. Tongue was midline. Speech is fluent. She is not aphasic. There is no drift. She had normal strength in upper and lower extremities bilaterally, a little bit of giveaway weakness right upper extremity, otherwise normal. symmetrically normal. DTRs are trace to absent throughout. Toes withdrew bilaterally. Pinprick was intact throughout. She is not ataxic on [id number]. LABORATORY DATA: MRI and MRA as above. CBC is normal. Urine drug screen negative. Urinalysis is minimally positive. Coags are normal. Basic metabolic profile: Sodium 135, otherwise normal. GFR 57, glucose was 379, calcium normal. IMPRESSION: Multiple TIAs. Could be small vessel TIA. I think we should check an MRA of the neck, however, to make sure there is nothing more proximal. She is a diabetic and at increased risk for that. Keep head-of-bed flat, some IV fluids. Will start her on for now 325 of aspirin and the Plavix and check her LDL, some additional blood work and echocardiogram. Otherwise, I thought she looked well neurologically and will watch her on tele here. Get her sugar under better control. MD DIONICIO Petersen/BIRD/ , 08:25 AM , 09:04 AM
[2017-05-21] MEDS ORDERED: GADODIAMIDE PF 287 MG/ML 20 ML VIAL (for RAD MRI) IV PUSH ONE (10:00)
[2017-05-21 10:15] LABS: CHOLESTEROL/ HDL RATIO 10.47 RATIO; HDL CHOLESTEROL 35.9 MG/DL (40.0-60.0)
--- NOTE | 2017-05-21 10:19 | RADRPT ---
EXAM DATE/TIME: 05/21/2017 09:11 [facility] COMPARISON: No previous studies available for comparison. INDICATIONS : Numbness of left side. MEDICAL HISTORY : Arthritis. Hypertension. Hypercholesterolemia. Neuropathy. Facial migraines. Diabetes. PTSD. SURGICAL HISTORY : section. Tubal ligation. Spinal fusion. D&C. ENCOUNTER: Initial ACUITY: 1 day PAIN SCORE: 3/10 LOCATION: Bilateral neck PEAK SYSTOLIC VELOCITIES (cm/sec): ICA/CCA RATIO: Right: 1.0 Left: 0.9 ICA: Right: 75 Left: 74 CCA: Right: 72 Left: 81 ECA: Right: 70 Left: 98 VERTEBRAL: Right: 47 antegrade Left: 73 antegrade Elevated flow velocities and ICA/CCA ratios have been found to correlate with increased degrees of vessel stenosis, calculated as percentage of diameter relative to a normal segment of distal ICA/CCA FINDINGS: RIGHT CAROTID: No significant stenosis is visualized. The waveforms are within normal limits. LEFT CAROTID: No significant stenosis is visualized. The waveforms are within normal limits. VERTEBRAL ARTERIES: Antegrade flow is seen in both vertebral arteries. MISCELLANEOUS: None. CONCLUSION: Negative for hemodynamically significant stenosis. Nitish Mullen MD FACR on May 21, 2017 at 10:17 Board Certified Radiologist. This report was verified electronically.
[2017-05-21] MEDS: ASPIRIN EC 325 MG TABEC PO SCH (12:20)
[2017-05-21] MEDS: SODIUM CHLOR 0.9% 1000 ML INJ 1,000 ML IV SCH ×2 (12:22→21:00)
--- NOTE | 2017-05-21 13:24 | ECHRPT ---
Indication: cva/tia CONCLUSIONS The left ventricular systolic function is normal with an estimated ejection fraction in the range of 50- 55%.Normal left ventricular size. Wall thickness is normal. No regional wall motion abnormalities ar e present. Trileaflet aortic valve. Trivial aortic valve regurgitation. BP: 183 / 94 HR: 94 Rhythm: Sinus MEASUREMENTS (Male / Female) Normal Values Technical Quality:Good 2D ECHO LV Diastolic Diameter PLAX 4.2 cm 4.2 - 5.9 / 3.9 - 5.3 cm LV Systolic Diameter PLAX 2.8 cm IVS Diastolic Thickness 1.2 cm 0.6 - 1.0 / 0.6 - 0.9 cm LVPW Diastolic Thickness 1.2 cm 0.6 - 1.0 / 0.6 - 0.9 cm LV Relative Wall Thickness 0.6 RV Internal Dim ED PLAX 2.3 cm LVOT Diameter 1.8 cm LA Systolic Diameter LX 3.4 cm 3.0 - 4.0 / 2.7 - 3.8 cm M-MODE Aortic Root Diameter MM 2.3 cm LA Systolic Diameter MM 3.4 cm LA Ao Ratio MM 1.5 AV Cusp Separation MM 1.5 cm DOPPLER AV Peak Velocity 133.0 cm/s AV Peak Gradient 7.1 mmHg LVOT Peak Velocity 93.8 cm/s LVOT Peak Gradient 3.5 mmHg AV Area Cont Eq pk 1.8 cm MV Area PHT 3.4 cm Mitral E Point Velocity 81.9 cm/s Mitral A Point Velocity 86.4 cm/s Mitral E to A Ratio 0.9 LV E' Lateral Velocity 5.6 cm/s Mitral E to LV E' Lateral Ratio 14.7 LV E' Septal Velocity 4.7 cm/s Mitral E to LV E' Septal Ratio 17.5 PV Peak Velocity 99.1 cm/s PV Peak Gradient 3.9 mmHg FINDINGS LEFT VENTRICLE The left ventricular systolic function is normal with an estimated ejection fraction in the range of 50- 55%.Normal left ventricular size. Wall thickness is normal. No regional wall motion abnormalities ar e present. RIGHT VENTRICLE Normal right ventricular size and systolic function. LEFT ATRIUM The left atrial size is normal. RIGHT ATRIUM The right atrial size is normal. ATRIAL SEPTUM Normal atrial septal thickness without atrial level shunting by limited color doppler interrogation. AORTA The aortic root and proximal ascending aorta are normal in size on limited imaging. MITRAL VALVE Structurally normal mitral valve. No mitral valve stenosis or regurgitation. AORTIC VALVE Trileaflet aortic valve. Trivial aortic valve regurgitation. TRICUSPID VALVE Structurally normal tricuspid valve. No tricuspid valve stenosis or regurgitation. PULMONARY VALVE The pulmonary valve is not well visualized. VESSELS The inferior vena cava is normal in size. PERICARDIUM No pericardial effusion. Norberto Anthony MD (Electronically Signed) Final Date:21 May 2017 13:24
--- NOTE | 2017-05-21 13:38 | EKG ---
Date Performed: 05/20/2017 Time Performed: 13:41:53 PTAGE: 52 years EKG: Sinus rhythm NORMAL ECG NO PREVIOUS TRACING DOCTOR: Mazin Dela Cruz Interpretating Date/Time 05/21/2017 13:35:18
[2017-05-21 16:03] LABS: HEMOGLOBIN A1C 11.7 % (4.3-6.0)
[2017-05-21 16:18] LABS: ALT (GPT) 10 U/L (10-53); AST (GOT) 8 U/L (15-37); CHOLESTEROL 364 MG/DL (120-200)
[2017-05-21 16:43] LABS: C-REACTIVE PROTEIN 0.78 MG/DL (0.00-0.30); CHOLESTEROL/ HDL RATIO 10.08 RATIO; FREE T4 0.97 NG/DL (0.76-1.46); HDL CHOLESTEROL 36.1 MG/DL (40.0-60.0); LDL CHOLESTEROL 293 MG/DL (0-99); TRIGLYCERIDES 174 MG/DL (42-150); TROPONIN I LESS THAN 0.02 NG/ML (0.02-0.05)
[2017-05-21] MEDS: ATORVASTATIN 10 MG TAB PO SCH (20:32)
[2017-05-21] MEDS: cefTRIAXone INJ 1,000 MG in SODIUM CHLORIDE 0.9% INJ 100 ML IV SCH (20:32)
[2017-05-22] VITALS: BP 100/60; PULSE 88; RESP 18; TEMP 98; O2SAT 99
[2017-05-22] MEDS: ACETAMINOPHEN/HYDROcodone 325 MG/5 MG TAB PO PRN ×2 (03:58→10:29)
[2017-05-22] MEDS: SODIUM CHLOR 0.9% 1000 ML INJ 1,000 ML IV SCH (03:59)
[2017-05-22 04:00] VITALS: BP 105/60; PULSE 80; RESP 20; TEMP 97; O2SAT 99
--- NOTE | 2017-05-22 07:43 | HHI.PR ---
Subjective Remarks sr Objective Vital Signs Date Time Temp Pulse Resp B/P (MAP) Pulse Ox O2 Delivery O2 Flow Rate FiO2 05/22/17 04:00 97.0 80 20 105/60 (75) 99 05/22/17 00:00 98.0 88 18 100/60 (73) 99 05/21/17 20:15 97.8 91 17 101/59 (73) 98 05/21/17 16:00 98.3 83 17 162/84 (110) 99 05/21/17 12:38 79 05/21/17 12:36 97.8 81 18 100 05/21/17 08:00 98.4 85 17 136/74 (94) 98 I/O 05/21/17 05/21/17 05/21/17 05/22/17 05/22/17 05/22/17 07:00 15:00 23:00 07:00 15:00 23:00 Intake Total 800 ml 950 ml Balance 800 ml 950 ml Intake Oral 800 ml 950 ml # Voids 0 5 # Bowel Movements 0 0 Result Diagram: 05/20/17 1350 05/20/17 1350 Objective Remarks vff 5/5 t/o nl speech Assessment and Plan Assessment and Plan imp mra neck prelim neg echo neg on statin ldl marked inc was on crestor on asa 325 and plavix for one week then 81 mg and plavix ok oob fu holter eeg nl trop and cpk neg could dc later today if no more spells and mri repeat neg and fu office will repeat mri see if any cva missed on prior may be small vessel dz should take fish oil o/p also Joseph Caballero MD May 22, 2017 07:43
[2017-05-22 08:00] VITALS: BP 102/62; PULSE 89; RESP 16; TEMP 97.5; O2SAT 97
[2017-05-22] MEDS: INSULIN ASPART SUPPLEMENTAL SCALE SQ SCH ×2 (08:00→12:00)
[2017-05-22] MEDS: CLOPIDOGREL 75 MG TAB PO SCH (08:34)
[2017-05-22] MEDS: ASPIRIN EC 325 MG TABEC PO SCH (08:34)
--- NOTE | 2017-05-22 08:37 | MG ---
cc: Joseph Caballero MD #[id number] DESCRIPTION: This a 52-year-old woman. Hyperventilation not performed. Generally weak. MEDICATIONS: Anxiety, psychiatric problems. Aspirin, Plavix, Lipitor, ceftriaxone. Recording shows a 9-10 hertz, 60 microvolt symmetric and synchronous posterior rhythm. The patient becomes drowsy and falls asleep. Some snoring is noted. Some bitemporal theta slowing is noted. She did not quite reach stage II sleep. Photic stimulation was performed, without significant posterior driving. No epileptiform or seizure activity is noted. There were no hemisphere asymmetries. IMPRESSION: A normal awake and sleep EEG. No evidence for a focal or diffuse abnormality. MD DIONICIO Petersen/TUNDE , 07:50 PM , 09:12 PM
[2017-05-22] MEDS: SODIUM CHLORIDE 0.9% FLUSH 10 ML FLUSH IV FLUSH SCH (08:38)
--- NOTE | 2017-05-22 08:39 | HHI.PR ---
Subjective Remarks in no acute distress. no new complaints. tingling of the upper extremities has resolved. Objective Vitals Vital Signs Date Time Temp Pulse Resp B/P (MAP) Pulse Ox O2 Delivery O2 Flow Rate FiO2 05/22/17 04:00 97.0 80 20 105/60 (75) 99 05/22/17 00:00 98.0 88 18 100/60 (73) 99 05/21/17 20:15 97.8 91 17 101/59 (73) 98 05/21/17 16:00 98.3 83 17 162/84 (110) 99 05/21/17 12:38 79 05/21/17 12:36 97.8 81 18 100 I/O 05/21/17 05/21/17 05/21/17 05/22/17 05/22/17 05/22/17 07:00 15:00 23:00 07:00 15:00 23:00 Intake Total 800 ml 950 ml Balance 800 ml 950 ml Intake Oral 800 ml 950 ml # Voids 0 5 # Bowel Movements 0 0 Result Diagram: 05/20/17 1350 05/20/17 1350 Imaging Last Impressions Carotid Artery Ultrasound 05/21/17 0000 Signed Impressions: Service Date/Time: Sunday, May 21, 2017 09:11 - CONCLUSION: Negative for hemodynamically significant stenosis. Nitish Mullen MD FACR Head CT 05/20/17 1314 Signed Impressions: Service Date/Time: Saturday, May 20, 2017 16:36 - CONCLUSION: Normal examination. Jorge Luis Guadarrama MD Head Magnetic Resonance Angiography 05/20/17 0000 Signed Impressions: Service Date/Time: Saturday, May 20, 2017 18:43 - CONCLUSION: 1. Examination within normal limits for age. Dallin Maldonado MD Brain MRI 05/20/17 0000 Signed Impressions: Service Date/Time: Saturday, May 20, 2017 18:43 - CONCLUSION: 1. No acute findings. No recent infarct no mass effect or shift. No hydrocephalus. Minimal white matter ischemic changes. Dallin Maldonado MD Objective Remarks GENERAL: This is a well-nourished, well-developed patient, in no apparent distress. CARDIOVASCULAR: Regular rate and regular rhythm without murmurs, gallops, or rubs. RESPIRATORY: Clear to auscultation. Breath sounds equal bilaterally. No wheezes , rales, or rhonchi. GASTROINTESTINAL: Abdomen soft, non-tender, nondistended. Normal, active bowel sounds MUSCULOSKELETAL: Extremities without clubbing, cyanosis, or edema. NEURO: Alert & Oriented x4 to person, place, time, situation. Moves all ext x4 Procedures none Medications and IVs Inpatient Medications Acetaminophen/ Hydrocodone Bitart ([place] 5-325 Mg) 1 tab Q4H PRN PO PAIN Last administered on 05/22/17 03:58; Start 05/21/17 at 00:15 Aspirin (Aspirin Chew) 81 mg DAILY PO Last administered on 05/21/17 08:44; Start 05/21/17 at 09:00; Stop 05/21/17 at 11:53; Status DC Aspirin (Ecotrin Ec) 325 mg DAILY PO Last administered on 05/21/17 12:20; Start 05/21/17 at 12:00 Atorvastatin Calcium (Lipitor) 10 mg HS PO Last administered on 05/21/17 20:32 ; Start 05/20/17 at 21:00 Ceftriaxone Sodium 1000 mg/ Sodium Chloride 100 ml @ 200 mls/hr Q24H IV Last administered on 05/21/17 20:32; Start 05/20/17 at 20:00 Clopidogrel Bisulfate (Plavix) 75 mg DAILY PO Last administered on 05/21/17 08: 43; Start 05/21/17 at 09:00 Cyanocobalamin (Vitamin B12 Inj) 1,000 mcg DAILY SQ ; Start 05/22/17 at 09:00; Stop 05/25/17 at 08:59; Status UNV Dextrose (D50w (Vial) Inj) 50 ml UNSCH PRN IV PUSH HYPOGLYCEMIA-SEE COMMENTS; Start 05/20/17 at 18:15 Glucagon (Glucagon Inj) 1 mg UNSCH PRN OTHER HYPOGLYCEMIA-SEE COMMENTS; Start 05/20/17 at 18:15 Insulin Aspart (NovoLOG SUPPLEMENTAL SCALE) 1 ACHS SQ Last administered on at 21:00; Start 05/20/17 at 21:00 Non-Formulary Medication 75 mg DAILY PO ; Start 05/21/17 at 09:00; Status UNV Sodium Chloride 1,000 ml @ 100 mls/hr Q10H IV Last administered on 05/22/17at 03 :59; Start 05/21/17 at 11:00 Sodium Chloride (NS Flush) 2 ml UNSCH PRN IV FLUSH FLUSH AFTER USING IV ACCESS ; Start 05/20/17 at 18:15 A/P Problem List: (1) TIA (transient ischemic attack) ICD Code: G45.9 - Transient cerebral ischemic attack, unspecified Status: Acute (2) UTI (urinary tract infection) ICD Code: N39.0 - Urinary tract infection, site not specified Status: Acute Assessment and Plan TIA, acute CT brain reviewed and unremarkable MRI/MRA reviewed and shows no acute findings -Continue neuro checks -2-D echo with EF 50% -holter pending. -Continue Plavix, aspirin daily; aspirin 325 mg daily for one week-then 81 mg po daily. -Carotid ultrasound with no significant stenosis -MRI brain to be repeated today. -neurology f/u appreciated. Abnormal UA, questionable UTI -Continue antibiotic. -follow the UC. Diabetes, chronic -Accu-Cheks with sliding scale insulin -resume home medications - f/u as outpatient. Hyperlipidemia, chronic- LDL > 190. -will stop crestor and start on lipitor 80 mg po daily. DVT prophylaxis: SCDs Discharge Planning dc home today if MRI brain negative. f/u; pcp and neurology. holter and UC to be followed up as outpatient. d/w the patient and RN. Problem Qualifiers (1) TIA (transient ischemic attack): Qualified Codes: G45.9 - Transient cerebral ischemic attack, unspecified (2) UTI (urinary tract infection): Qualified Codes: N39.0 - Urinary tract infection, site not specified Chrissy Benitez MD May 22, 2017 08:39
[2017-05-22] MEDS ORDERED: LIPI80TA PO (08:45)
[2017-05-22] MEDS ORDERED: ASPI-516 CHEW (08:45)
[2017-05-22] MEDS ORDERED: CIPR250T52 PO (08:47)
--- NOTE | 2017-05-22 08:49 | HHI.DS ---
Discharge Summary Admission Date May 21, 2017 at 12:52 Discharge Date: May 22, 2017 Admitting Diagnosis TIA (1) TIA (transient ischemic attack) ICD Code: G45.9 - Transient cerebral ischemic attack, unspecified Diagnosis: Principal Status: Acute (2) UTI (urinary tract infection) ICD Code: N39.0 - Urinary tract infection, site not specified Diagnosis: Secondary Status: Acute Procedures none Brief History - From Admission 52 -year-old female with a history of diabetes, hyperlipidemia, CVA and anxiety presented to the ED with complaints of numbness and tingling to bilateral upper extremities. Patient states today about 8 AM this morning she began to have upper extremity numbness and tingling mostly in her left upper arm and left leg and the left side of her face. She states throughout the day this feeling would come and go when she also had a hard time finding words when speaking. 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 She denies any associated chest pain, shortness of breath, fever or chills. She has just recently moved to [place] in January and has not found a primary care physician and as of Sunday she has been out of her diabetic medications. She states she is compliant with all her other medications for cholesterol and her Plavix. Upon examination she was experiencing intermittent left-sided cheek numbness. No facial droop noted. CBC/BMP: 05/20/17 1350 05/20/17 1350 Significant Findings Laboratory Tests Test 05/20/17 13:20 05/20/17 13:50 05/21/17 08:50 05/21/17 15:16 Urine Glucose (UA) 1000 mg/dL (NEG) Urine Nitrite POS (NEG) Urine Bacteria MOD /hpf (NONE) Urine Mucus FEW /lpf (OCC) White Blood Count 11.1 TH/MM3 (4.0-11.0) Activated Partial Thromboplast Time 23.8 SEC (24.3-30.1) Blood Urea Nitrogen 26 MG/DL (7-18) Creatinine 1.01 MG/DL (0.50-1.00) Random Glucose 379 MG/DL (74-106) Sodium Level 135 MEQ/L (136-145) Estimat Glomerular Filtration Rate 57 ML/MIN (>89) Hemoglobin A1c 11.7 % (4.3-6.0) Triglycerides Level 158 MG/DL (42-150) 174 MG/DL (42-150) Cholesterol Level 376 MG/DL (120-200) 364 MG/DL (120-200) LDL Cholesterol 309 MG/DL (0-99) 293 MG/DL (0-99) HDL Cholesterol 35.9 MG/DL (40.0-60.0) 36.1 MG/DL (40.0-60.0) Erythrocyte Sedimentation Rate 42 mm/hr (0-30) Aspartate Amino Transf (AST/SGOT) 8 U/L (15-37) Troponin I LESS THAN 0.02 NG/ML C-Reactive Protein 0.78 MG/DL (0.00-0.30) Imaging Last Impressions Carotid Artery Ultrasound 05/21/17 0000 Signed Impressions: Service Date/Time: Sunday, May 21, 2017 09:11 - CONCLUSION: Negative for hemodynamically significant stenosis. Nitish Mullen MD FACR Head CT 05/20/17 1314 Signed Impressions: Service Date/Time: Saturday, May 20, 2017 16:36 - CONCLUSION: Normal examination. Jorge Luis Guadarrama MD Head Magnetic Resonance Angiography 05/20/17 0000 Signed Impressions: Service Date/Time: Saturday, May 20, 2017 18:43 - CONCLUSION: 1. Examination within normal limits for age. Dallin Maldonado MD Brain MRI 05/20/17 0000 Signed Impressions: Service Date/Time: Saturday, May 20, 2017 18:43 - CONCLUSION: 1. No acute findings. No recent infarct no mass effect or shift. No hydrocephalus. Minimal white matter ischemic changes. Dallin Maldonado MD PE at Discharge GENERAL: This is a well-nourished, well-developed patient, in no apparent distress. CARDIOVASCULAR: Regular rate and regular rhythm without murmurs, gallops, or rubs. RESPIRATORY: Clear to auscultation. Breath sounds equal bilaterally. No wheezes , rales, or rhonchi. GASTROINTESTINAL: Abdomen soft, non-tender, nondistended. Normal, active bowel sounds MUSCULOSKELETAL: Extremities without clubbing, cyanosis, or edema. NEURO: Alert & Oriented x4 to person, place, time, situation. Moves all ext x4 Hospital Course TIA, acute CT brain reviewed and unremarkable MRI/MRA reviewed and shows no acute findings -Continue neuro checks -2-D echo with EF 50% -holter pending. -Continue Plavix, aspirin daily; aspirin 325 mg daily for one week-then 81 mg po daily. -Carotid ultrasound with no significant stenosis -MRI brain to be repeated today. -neurology f/u appreciated. Abnormal UA, questionable UTI -Continue antibiotic. -follow the UC. Diabetes, chronic -Accu-Cheks with sliding scale insulin -resume home medications - f/u as outpatient. Hyperlipidemia, chronic- LDL > 190. -will stop crestor and start on lipitor 80 mg po daily. Pt Condition on Discharge: Good Discharge Disposition: Discharge Home Discharge Time: <= 30 minutes Discharge Instructions DIET: Follow Instructions for: Heart Healthy Diet, Diabetic Diet Speech Therapy-Diet Recommends: Regular Activities you can perform: Regular-No Restrictions Chrissy Benitez MD May 22, 2017 08:49
[2017-05-22] MEDS ORDERED: CYANOCOBALAMIN 1000 MCG/ML VIAL SQ SCH (09:00)
--- NOTE | 2017-05-22 09:52 | RADRPT ---
EXAM DATE/TIME: 05/22/2017 09:03 [facility] COMPARISON: MRI BRAIN W/O CONTRAST, May 20, 2017, 18:43. INDICATIONS : CVA. MEDICAL HISTORY : Diabetes mellitus type 2. Hypertension. SURGICAL HISTORY : Tubal ligation. Fusion, lumbar. ENCOUNTER: Initial ACUITY: 2 day PAIN SCORE: 0/10 LOCATION: head TECHNIQUE: Multiplanar, multisequence MRI of the brain was performed without contrast. FINDINGS: CEREBRUM: The ventricles are normal for age. No evidence of midline shift, mass lesion, hemorrhage or acute in farction. No extraaxial fluid collections are seen. The pituitary gland and suprasellar cistern are normal in configuration. WHITE MATTER: Stable mild chronic white matter changes bilaterally. POSTERIOR FOSSA: The cerebellum and brainstem are intact. The 4th ventricle is midline. The cerebellopontine angle is unremarkable. The cerebellar tonsils are normal in position. DIFFUSION IMAGING: No focal areas of restricted diffusion are seen. No evidence of acute infarction. EXTRACRANIAL: The visualized portions of the orbits and paranasal sinuses are unremarkable. Compared to the prior exam there have been no new or significant changes. CONCLUSION: Stable and unremarkable MRI of the brain for patient's age compared to the prior examination. No new or significant changes are demonstrated. Franklin Dorsey MD on May 22, 2017 at 9:49 Board Certified Radiologist. This report was verified electronically.
[2017-05-22 10:46] VITALS: PULSE 87
[2017-05-22 12:00] VITALS: BP 129/84; PULSE 80; RESP 18; TEMP 97.7; O2SAT 99
[2017-05-22] MEDS ORDERED: CEFU1TAB18 PO (13:01)
--- NOTE | 2017-05-23 08:03 | HM ---
Date Performed: 05/21/2017 Time Performed: 12:07:00 HOOKUP DATE: 05/21/17 12:07:00 PM Mon ANALYSIS START TIME: 05/21/2017 12:12:00 PM ANALYSIS END TIME: 05/22/2017 9:16:14 AM PATIENT AGE: 52 PATIENT HEIGHT PATIENT WEIGHT DRUG LIST PATIENT DIAGNOSIS: ACUTE STROKE OR TIA TEST NARRATIVE: The patient's average heart rate was 80 BPM. No episodes of tachycardia wer e noted. No episodes of bradycardia were noted. No pauses exceeding 2.0 seconds were noted. No ventricular ectopics were noted. 1 supraventricular ectopics, which represented < 1% of the to jacki beat count, were noted. The highest supraventricular ectopic frequency occurred from 06:00 AM to 07:00 AM Tu. During this time 1 SVE(s) occurred. No episodes of ST depression (defined as -1.0 mm or more) were noted in channel 1. No episodes of ST depression (defined as -1.0 mm or more) were noted in channel 2. No episodes of ST depression (defined as -1.0 mm or more) were noted in channel 3. TEST INTERPRETATION: Patient is in Sinus rhythm throughout the recording. The average heart rate is 80 bpm, with a minimum heart rate of 60 and a pe aked heart rate of 112. There is rare ectopy with only one atrial premature beat seen. There are no pauses noted. There is no diary to review. Conclusions: Unremarkable holter monitor recording. Signed by : Moody Tijerina
--- NOTE | 2017-05-23 09:44 | RADRPT ---
EXAM DATE/TIME: 05/21/2017 10:01 [facility] COMPARISON: No previous studies available for comparison. INDICATIONS : Stroke. CONTRAST: 20 cc Omniscan (gadodiamide) IV MEDICAL HISTORY : Diabetes mellitus type 2. Hypertension. Stroke SURGICAL HISTORY : Tubal ligation. section. Fusion, lumbar. ENCOUNTER: Initial ACUITY: 2 day PAIN SCORE: 0/10 LOCATION: head Percent stenosis is calculated using the diameter of the stenotic region over the diameter of the nor mal distal internal carotid artery. TECHNIQUE: Bolus infused MRA of the extracranial circulation was performed using a neurovascular coil. Post pro cessing was performed including rotating subvolume maximum intensity projections of each carotid yared ry, rotating full volume maximum intensity projections of both carotid arteries, sagittal and coronal sliding thin slab reformations of each carotid artery, and left oblique sliding thin slab reformatio n through the aortic arch to include the origin of the arch branch vessels. FINDINGS: AORTIC ARCH: There is a three vessel origin of the great vessels from the aorta. No evidence of ostial narrowing. Atherosclerotic plaque generates a 50% stenosis of the right axillary artery with mild poststenotic dilatation observed. There is a similar stenosis involving the contralateral side. RIGHT CAROTID: Atherosc right plaque is seen involving the origin of the ICA generating a 10-20% stenosis utilizing NASCET criteria. No ulceration. The CCA, ECA, and remaining extracranial ICA are patent. LEFT CAROTID: The common carotid artery, external carotid artery, and proximal internal carotid artery are widely p atent. There is a focal level like stenosis involving the ICA at the level of the skull base. This ge nerates a 50% stenosis utilizing NASCET criteria. VERTEBRALS: The vertebral arteries have a symmetric diameter. No stenotic lesions are seen. CONCLUSION: 1. Bilateral axillary artery stenoses. The right is slightly more pronounced than the left. 2. Questionable 50% stenosis of the left ICA at the level of the skull base. This is in an area with artifact. 3. Carotid arteries and vertebral arteries are otherwise patent. Trenton Tejeda Jr., MD on May 23, 2017 at 9:37 Board Certified Radiologist. This report was verified electronically.
[2017-05-23 14:25] LABS: ANA SCREEN NEG (NEG)
== END 2017-05-22 14:34 | disposition home or self-care (01) | DRG 69 ==
LOC: NEPE 12:54 → INTOOBSV 15:58 → NEDA 15:58 → N05B 16:50 → OBSVTOIN 05-21 12:52
PROVIDERS: ADMIT Internal Medicine; ATTEND Internal Medicine
DX: G45.9 Transient cerebral ischemic attack, unspecified (principal); I69.351 Hemiplegia and hemiparesis following cerebral infarction affecting right dominant side; N39.0 Urinary tract infection, site not specified; E11.9 Type 2 diabetes mellitus without complications; E78.5 Hyperlipidemia, unspecified; F41.9 Anxiety disorder, unspecified; E78.00 Pure hypercholesterolemia, unspecified; Z98.1 Arthrodesis status; Z87.11 Personal history of peptic ulcer disease
CPT/HCPCS: 70450; 70544; 70548; 70551; 80048; 80061; 80307; 81001; 82550; 82607; 82948; 83036; 84439; 84443; 84450; 84460; 84484; 85025; 85610; 85652; 85730; 86038; 86140; 86592; 87077; 87086; 87186; 93005; 93225; 93226; 93306; 93880; 95819; 96365; 96372; A9579; G0378; G8987-GP; G8988-GP; G8996-GN; G8997-GN; G8998-GN; J0696; J1815; J3420; J7030